=== PATIENT | female | born 2000 | race American Indian/Alaskan Native ===

== ENCOUNTER 2021-08-27 09:30 | Emergency (ER) | payer SELFPAY ==
[2021-08-27 09:53] VITALS: BP 108/71
--- NOTE | 2021-08-27 14:13 | Emergency Department Report ---
- General Chief Complaint: Wound/Laceration Stated Complaint: CUT FINGER Source: patient Mode of arrival: Ambulatory Limitations: No Limitations - History of Present Illness Initial Comments: 21-year-old female presents to the ED complaining laceration to the left middle distal phalanx. Patient states that she was attempting to open a can for when she accidentally cut her hand on top. Bleeding is controlled with a bandage. Patient states that pain is a current 2 out of 10. Patient denies any numbness or tingling at present time. She states that she is up-to-date on tetanus shot. Patient is to move extremity without any difficulty. No obvious edema noted. No distracting injury noted. Patient is alert and oriented x3. No acute distress noted. No ill appearance noted. Onset/Timin -: hour(s) Place: home Patient Tetanus UTD: Yes Context: accidental Associated Symptoms: pain Treatments Prior to Arrival: bandage - Related Data Previous Rx's Medication Instructions Recorded Last Taken Type Acetamin/Codeine 120-12Mg/5 ml 5 ml PO TID PRN #30 ml 03/31/15 Unknown Rx [Tylenol/Codeine] Ibuprofen Oral Liqd [Motrin] 470 mg PO TID PRN #1 bottle 03/31/15 Unknown Rx cephALEXin [Keflex] 500 mg PO Q12HR 10 Days #20 cap 08/27/21 Unknown Rx Allergies Allergy/AdvReac Type Severity Reaction Status Date / Time No Known Allergies Allergy Unverified 03/30/15 21:34 ED Review of Systems ROS: Stated complaint: CUT FINGER Other details as noted in HPI Constitutional: denies: chills, fever Eyes: denies: eye pain, eye discharge, vision change ENT: denies: ear pain, throat pain Respiratory: denies: cough, shortness of breath, wheezing Cardiovascular: denies: chest pain, palpitations Endocrine: no symptoms reported Gastrointestinal: denies: abdominal pain, nausea, diarrhea Genitourinary: denies: urgency, dysuria, discharge Musculoskeletal: denies: back pain, joint swelling, arthralgia Skin: other (left middle phalanx). denies: rash, lesions Neurological: denies: headache, weakness, paresthesias Psychiatric: denies: anxiety, depression Hematological/Lymphatic: denies: easy bleeding, easy bruising ED Past Medical Hx - Past Medical History Hx Asthma: Yes - Surgical History Past Surgical History?: No - Social History Smoking Status: Never Smoker Substance Use Type: None - Medications Home Medications: Home Medications Medication Instructions Recorded Confirmed Last Taken Type Acetamin/Codeine 120-12Mg/5 ml 5 ml PO TID PRN #30 ml 03/31/15 Unknown Rx [Tylenol/Codeine] Ibuprofen Oral Liqd [Motrin] 470 mg PO TID PRN #1 bottle 03/31/15 Unknown Rx cephALEXin [Keflex] 500 mg PO Q12HR 10 Days #20 cap 08/27/21 Unknown Rx ED Physical Exam - General Limitations: No Limitations General appearance: alert, in no apparent distress - Head Head exam: Present: atraumatic, normocephalic - Eye Eye exam: Present: normal appearance - ENT ENT exam: Present: mucous membranes moist - Neck Neck exam: Present: normal inspection - Respiratory Respiratory exam: Present: normal lung sounds bilaterally. Absent: respiratory distress - Cardiovascular Cardiovascular Exam: Present: regular rate, normal rhythm. Absent: systolic murmur, diastolic murmur, rubs, gallop - GI/Abdominal GI/Abdominal exam: Present: soft, normal bowel sounds - Extremities Exam Extremities exam: Present: normal inspection - Back Exam Back exam: Present: normal inspection - Neurological Exam Neurological exam: Present: alert, oriented X3 - Psychiatric Psychiatric exam: Present: normal affect, normal mood - Skin Skin exam: Present: warm, dry, intact, normal color. Absent: rash ED Course Vital Signs 08/27/21 09:50 Temperature 98.4 F Pulse Rate 73 Respiratory 16 Rate Blood Pressure 108/71 O2 Sat by Pulse 100 Oximetry ED Medical Decision Making - Medical Decision Making 21-year-old female presents to the ED complaining laceration to the left middle distal phalanx. Patient states that she was attempting to open a can for when she accidentally cut her hand on top. Bleeding is controlled with a bandage. Patient states that pain is a current 2 out of 10. Patient denies any numbness or tingling at present time. She states that she is up-to-date on tetanus shot. Patient is to move extremity without any difficulty. No obvious edema noted. No distracting injury noted. Patient is alert and oriented x3. No acute distress noted. No ill appearance noted. Dental block by used to repair less than 1 cm laceration to the left middle distal phalanx. Patient is place in a finger splint. Rechecked the patient is resting quietly quietly and comfortable and feeling better. I discussed the results of diagnostic study, my clinical impression and the plan for further treatment with the patient. Patient agrees with plan and discharge at this present time. All question addressed. I have given the patient instruction regarding a diagnosis ,expectation ,follow- up and return precaution. I explained to the patient that emergent condition may arise and to return to the ED for new worsen and any new persisting condition. I have explained the importance of following up with the primary care physician or referral physician listed below has instructed. The patient verbalized understanding of discharge instruction. Critical care attestation.: If time is entered above; I have spent that time in minutes in the direct care of this critically ill patient, excluding procedure time. ED Disposition Clinical Impression: Laceration Disposition: 01 HOME / SELF CARE / HOMELESS Is pt being admited?: No Does the pt Need Aspirin: No Condition: Stable Instructions: Tissue Adhesive Wound Care, [id number], Laceration Care, Adult, [id number] Additional Instructions: Take medication as prescribed Return to the ED for any worsening symptom Prescriptions: cephALEXin [Keflex] 500 mg PO Q12HR 10 Days #20 cap Referrals: [facility] [Provider Group] - 3-5 Days Forms: Work/School Release Form(ED) Time of Disposition: 14:18
== END 2021-08-27 16:06 | disposition home or self-care (01) ==
LOC: ED 09:30
DX: S61.213A Laceration without foreign body of left middle finger without damage to nail, initial encounter (principal); J45.909 Unspecified asthma, uncomplicated; Z79.899 Other long term (current) drug therapy; W26.8XXA Contact with other sharp object(s), not elsewhere classified, initial encounter; Y93.89 Activity, other specified; Y92.89 Other specified places as the place of occurrence of the external cause; Y99.8 Other external cause status
CPT/HCPCS: 99282